=== PATIENT | female | born 1945 | race Caucasian/White ===

== ENCOUNTER 2018-10-26 07:39 | Day surgery (SDC) | payer OTHER ==
[2018-10-26] VITALS (7 sets, daily range): BP systolic 127–140; BP diastolic 66–70; PULSE 76–98; RESP 16–18; Ht 162.6 cm; Wt 84.1 kg
[~2018-10-26] VITALS: Ht 162.6 cm; Wt 84.1 kg
[2018-10-26] MEDS ORDERED: omeprazole (08:34)
[2018-10-26] MEDS ORDERED: zantac (08:34)
[2018-10-26] MEDS ORDERED: eliquis (08:34)
[2018-10-26] MEDS ORDERED: lisinopril (08:34)
[2018-10-26] MEDS ORDERED: metoprolol (08:34)
[2018-10-26] MEDS ORDERED: DIPHENHYDRAMINE 50 MG INJ ONE (09:06)
--- NOTE | 2018-10-26 09:15 | HPN ---
Date/Time of Note Date/Time of Note DATE: 10/26/18 TIME: 09:15 Interval H&P Admission Note Pt. seen H&P reviewed: No system changes SUNI RENTERIA October 26, 2018 09:15
[2018-10-26] MEDS ORDERED: FENTAnyl 50 MCG/ML VIAL ONE ×2 (09:32→09:38)
[2018-10-26] MEDS ORDERED: MIDAZOLAM 1 MG/ML 2 ML INJ ONE ×2 (09:32)
== END 2018-10-26 10:40 | disposition home or self-care (01) ==
LOC: GIL 07:39
PROVIDERS: ATTEND Internal Medicine Gastroenterology
DX: K44.9 Diaphragmatic hernia without obstruction or gangrene (principal); K20.8 Other esophagitis
CPT/HCPCS: 43235; J1200; J2250; J3010; Z7610